=== PATIENT | female | born 1940 | race Caucasian/White ===

== ENCOUNTER → 2017-09-10 | Outpatient (CLI) | payer OTHER | LOC: BMCIMAGING 10:59 | PROVIDERS: ATTEND Internal Medicine | DX: M51.36 Other intervertebral disc degeneration, lumbar region (principal); M43.16 Spondylolisthesis, lumbar region; M25.552 Pain in left hip ==

== ENCOUNTER → 2017-09-27 | Outpatient (CLI) | payer OTHER | LOC: FIMAGING 13:36 | PROVIDERS: ATTEND Internal Medicine | DX: M43.16 Spondylolisthesis, lumbar region (principal); M48.061 Spinal stenosis, lumbar region without neurogenic claudication ==

== ENCOUNTER 2018-01-08 07:30 | Inpatient (IN) | payer OTHER ==
--- NOTE | 2018-01-08 06:29 | PDHPUP ---
History & Physical Update H&P update statement: This history and physical update is based on an assessment of the patient which was completed after admission or registration (within 24 hours), but prior to the surgery/procedure. H&P update: H&P reviewed & patient examined, no change in patient's condition since H&P completed
[2018-01-08] MEDS ORDERED: ceFAZolin 2 GM/SWFI 2 GM/20 ML SYR IVP ONE (08:52)
[2018-01-08] MEDS ORDERED: GABAPENTIN 300 MG CAP PO ONE (08:52)
[2018-01-08] MEDS ORDERED: ACETAMINOPHEN 500 MG TAB PO ONE (08:52)
[2018-01-08] MEDS ORDERED: THROMBIN (BOVINE) 5,000 UNIT VIAL TP ONE (09:13)
[2018-01-08] MEDS ORDERED: BACITRACIN 50,000 UNITS/10 ML SYR IRR ONE ×2 (09:13→12:11)
[2018-01-08] MEDS ORDERED: CHLORHEXIDINE GLUC HIBICLENS 118 ML BTL TP ONE (09:13)
[2018-01-08] MEDS ORDERED: BUPIVACAINE 0.25% 30 ML SDV ONE (09:13)
[2018-01-08] MEDS ORDERED: LIDOCAINE 1% 2 ML INJ ONE (09:18)
[2018-01-08] MEDS ORDERED: LIDOCAINE 1% 2 ML INJ ID PRN (09:47)
[2018-01-08] MEDS ORDERED: traMADol 50 MG TAB PO PRN (09:56)
--- NOTE | 2018-01-08 09:56 | PDANEPAE ---
ANE History of Present Illness lumbar stenosis ANE Past Medical History - Cardiovascular History Hx Hypertension: Yes Hx Arrhythmias: No Hx Chest Pain: No Hx Coronary Artery / Peripheral Vascular Disease: Yes Hx CHF / Valvular Disease: No Hx Palpitations: No Cardiovascular History Comment: hx of very high blood pressures requiring hospitalization. mi 1995 with stent placed. cad. pt is currently being worked up by [facility]. further tests being done 01/01/18 - Pulmonary History Hx COPD: No Hx Asthma/Reactive Airway Disease: No Hx Recent Upper Respiratory Infection: No Hx Oxygen in Use at Home: No Hx Sleep Apnea: No Sleep Apnea Screening Result - Last Documented: Negative - Neurologic History Hx Cerebrovascular Accident: Yes Hx Seizures: No Hx Dementia: No Neurologic History Comment: TIA 1992 after shoveling snow- no residual - Endocrine History Hx Diabetes: No Endocrine History Comment: hyperparathyroidism- sees unhairing inspector yearly for monitoring. hypercalcemia - Renal History Hx Renal Disorders: Yes Renal History Comment: renal insuff dt blood pressure medications - Liver History Hx Hepatic Disorders: No - Neurological & Psychiatric Hx Hx Neurological and Psychiatric Disorders: No - Cancer History Hx Cancer: No - Congenital Disorder History Hx Congenital Disorders: No - GI History Hx Gastrointestinal Disorders: Yes Gastrointestinal History Comment: hx of diverticulitis. recent constipation with medications- uses citracel at home - Other Health History Other Health History: wears glasses - Chronic Pain History Chronic Pain: Yes (lower back pain for over a year) - Surgical History Prior Surgeries: cataract 03/04/13 with Reece. cardiac stent 1995. multiple breast biopsies. at 22 yo exp lap for diverticulitis. at 40 yo partial hysterectomy and bladder lift. 1996 left broken ankle repair. 1997 hardware removed ANE Review of Systems Review of Systems: - Exercise capacity METS (RN): 4 METS ANE Patient History - Allergies Allergies/Adverse Reactions: Sftonjl-Pxv-Fau Reductase Inhibitor Allergy (Severe, Verified 12/25/17 10:27) Vomiting - Home Medications Home medications: home medication list seen and reviewed Home Medications: Allopurinol [Allopurinol 100 MG (*)] 100 mg PO DAILY 07/10/16 [Last Taken 07:00] Aspirin EC [Aspirin EC 81 mg (*)] 81 mg PO DAILY 07/10/16 [Last Taken 12/31/17] Colchicine [Colchicine (*)] 0.6 mg PO DAILY 07/10/16 [Last Taken 01/08/18 07:00] Gemfibrozil [Lopid 600 MG (*)] 600 mg PO BIDAC 07/11/16 [Last Taken 01/08/18 07: 00] Cholecalciferol Vit D3 [Vitamin D3 2000 units tab (OTC)] 2,000 units PO Q2D@09 12/18/17 [Last Taken 01/01/18] Latanoprost 0.005% [Xalatan 0.005% (*)] 1 drops EACHEYE HS 12/18/17 [Last Taken 01/07/18 21:00] Propranolol Sr [Inderal LA 60mg (*)] 180 mg PO DAILY 12/18/17 [Last Taken 07:00] traMADol [Ultram 50 mg (*)] 25 - 50 mg PO Q6 PRN 12/18/17 [Last Taken 01/08/18 08:00] - NPO status NPO Status: no food or drink >8 hours NPO Since - Liquids (Date): 01/07/18 NPO Since - Liquids (Time): 18:00 NPO Since - Solids (Date): 01/07/18 NPO Since - Solids (Time): 18:00 - Smoking Hx Smoking Status: Former smoker - Family Anes Hx Family Hx Anesthesia Complications: unknown pt is adopted ANE Labs/Vital Signs - Vital Signs Blood Pressure: 163/75 Heart Rate: 61 Respiratory Rate: 20 O2 Sat (%): 97 Height: 152.4 cm Weight: 45.359 kg ANE Physical Exam - Airway Neck exam: FROM Mouth exam: normal dental/mouth exam - Pulmonary Pulmonary: no respiratory distress - Cardiovascular Cardiovascular: regular rate and rhythym - ASA Status ASA Status: III
[2018-01-08] MEDS ORDERED: BISACODYL 10 MG SUPP PR PRN (09:58)
[2018-01-08] MEDS ORDERED: ONDANSETRON 4 MG/2 ML VIAL IVP PRN ×2 (09:58→13:44)
[2018-01-08] MEDS ORDERED: MAGNESIUM HYDROXIDE 30 ML UDCUP PO PRN (09:58)
[2018-01-08] MEDS ORDERED: oxyCODONE IR 5 MG TAB PO PRN (09:58)
[2018-01-08] MEDS ORDERED: morphINE PCA 30 MG/30 ML PCA IV PRN (09:58)
[2018-01-08] MEDS ORDERED: NALOXONE HCL 0.4 MG/ML INJ IVP PRN ×2 (09:58→13:44)
[2018-01-08] MEDS ORDERED: POLYETHYLENE GLYCOL 3350 17 GM PKT PO PRN (09:58)
[2018-01-08] MEDS ORDERED: LACTULOSE 20 GM/30 ML UDCUP PO PRN (09:58)
[2018-01-08] MEDS ORDERED: METHOCARBAMOL 750 MG TAB PO PRN (09:58)
[2018-01-08] MEDS ORDERED: ONDANSETRON DISINTEGRATING 4 MG TAB PO PRN (09:58)
[2018-01-08] MEDS ORDERED: HYDROmorphONE/DILAUDID 1 MG/ML INJ IVP PRN (09:58)
[2018-01-08] MEDS ORDERED: HYDROCODONE/APAP 5/325 TAB PO PRN (09:58)
[2018-01-08] MEDS ORDERED: diphenhydrAMINE 25 MG CAP PO PRN (09:58)
[2018-01-08] MEDS ORDERED: NS W/ 20 KCl/L 1,000 ML IV SCH (10:00)
[2018-01-08] MEDS ORDERED: fentaNYL 100 MCG/2 ML INJ ONE ×2 (10:06→14:38)
[2018-01-08] MEDS ORDERED: REMIFENTANIL HCL 1 MG VIAL ONE ×2 (10:06→13:19)
[2018-01-08] MEDS ORDERED: PROPOFOL/EMULSION 500 MG/50 ML BOTTLE IV ONE ×2 (10:06→12:54)
[2018-01-08] MEDS ORDERED: ROCURONIUM 50 MG/5 ML VIAL ONE (10:37)
[2018-01-08] MEDS ORDERED: LIDOCAINE 2% 5 ML SDV ONE (10:38)
[2018-01-08] MEDS ORDERED: ALBUMIN 5% 250 ML BOTTLE IV ONE (11:30)
[2018-01-08] MEDS ORDERED: hydrALAZINE 20 MG/ML VIAL ONE (11:59)
[2018-01-08] MEDS ORDERED: PROMETHAZINE HCL 25 MG/ML INJ IVP PRN (13:44)
[2018-01-08] MEDS ORDERED: LABETALOL HCL 5 MG/ML 20 ML MDV IVP PRN (13:44)
[2018-01-08] MEDS ORDERED: ceFAZolin 2 GM/DEXTROSE 100 ML IV SCH (14:00)
--- NOTE | 2018-01-08 14:27 | POSTANESTH ---
Post Anesthetic Evaluation Cardiovascular Status: Normal, Stable Respiratory Status: Normal, Stable Level of Consciousness/Mental Status: Can Participate in Eval Pain Control: Adequate, Prn Tx Ordered Nausea/Vomiting Control: Adequate, Prn Tx Ordered Complications Possibly Related to Anesthesia: None Noted
--- NOTE | 2018-01-08 14:40 | SOAPPROG ---
SOAP Progress Note Assessment/Plan: Post Op Visit: S: Awake and alert. NAD. Pt with expected lower back pain O: AFVSS/PERRLA/EOMI no droop CN 2-12 grossly intact +lt touch 5/5 BUE/BLE = CDI A/P: 77 yo female that is s/p TLIF L3/4 and L4/5 -orders in place -call with any questions or concerns -pt seen by Dr Hooker as well -take medications as directed 01/08/18 14:37 Objective: Vital Signs Temp Pulse Resp BP Pulse Ox 36.3 C 61 20 163/75 H 97 01/08/18 09:05 01/08/18 10:45 01/08/18 10:45 01/08/18 10:45 01/08/18 10:45 ICD10 Worksheet Patient Problems: Problems Problem Status Onset Arthrodesis status Acute Lumbar radicular pain Acute Lumbar stenosis Acute Bloody stool Acute GI hemorrhage Acute Near syncope Acute - ICD10 Problem Qualifiers (1) Lumbar stenosis (2) Lumbar radicular pain (3) Arthrodesis status
[2018-01-08] MEDS: fentaNYL 100 MCG/2 ML INJ IVP PRN ×2 (14:41→14:47)
[2018-01-08] MEDS: HYDROmorphONE/DILAUDID 1 MG/ML INJ IVP PRN ×3 (14:50→15:30)
[2018-01-08] MEDS ORDERED: HYDROmorphONE/DILAUDID 1 MG/ML INJ ONE (14:50)
--- NOTE | 2018-01-08 16:19 | GOP ---
[f rep st] OPERATIVE REPORT DATE OF OPERATION: 01/08/2018 SURGEON: Jena Hooker MD NEUROSURGEON: Jena Hooker MD. SUMMER ANALYST: Ralph Ramírez PA-C. PREOPERATIVE DIAGNOSIS: Lumbar spondylolisthesis L4-5, L3-4; severe spinal stenosis L4-5, moderate s david stenosis L3-4; lumbosacral radiculopathy. POSTOPERATIVE DIAGNOSIS: Lumbar spondylolisthesis L4-5, L3-4; severe spinal stenosis L4-5, moderate spinal stenosis L3-4; lumbosacral radiculopathy. PROCEDURE PERFORMED: Posterolateral intervertebral arthrodesis L3-4, L4-5 with bilateral decompressi ons L4-5 and left-sided decompression L3-4 (88721, [id number]); placement of biomechanical intervertebral device L3-4, L4-5; same incision bone graft harvest; spinal stereotactic; posterior segmental instrum entation at L3, L4, L5 ([id number]); microscope. FINDINGS: ESTIMATED BLOOD LOSS: 200 cc. INDICATIONS: Ms. Jaimes is a 77-year-old with terrible lumbosacral radiculopathy, left greater bishnu n right, who also had severe axial low back pain and spondylolisthesis, most prominent at the L4-5 le faiza and I suggested a 2 level lumbar fusion. She had failed conservative management. She was elderl y and I discussed with her family the serious nature of the surgery including the risk of adjacent se gment disease, screw and hardware malposition, malfunction, as well as the risk of pseudoarthrosis an d the need for revision surgery. She understood at her age, the risks of surgery were much greater than in a young person. These risk s include infection and pseudoarthrosis as well as the possibility that surgery will fail to improve her symptoms. They also knew there was a small chance of even catastrophic complications including t he patient's . They did want to proceed. DESCRIPTION OF PROCEDURE: The patient was taken to the operating room, placed in the supine position . General anesthesia was begun. She was flipped prone onto the Josué table. Care was taken to pa d all points of contact. Her back was sterilely prepped and draped in usual fashion. A localizing x -ray was taken. We made a 6-1/2 cm incision above the L3-4, L4-5 interspace. The subcutaneous tissu e was dissected using Bovie cautery down to the fascia and a subperiosteal dissection was made down t he inferior lamina of L2. The lamina of L3, 4, 5 was exposed. A self-retaining retractor was placed . A localizing x-ray was taken and we denuded the bilateral hypertrophic facets at L3-4, L4-5, and h er bone was exceptionally soft. We decorticated the transverse processes. We attached the Stealth r eference frame to L4, performed an O-arm spin and using frameless stealth stereotaxy placed pedicle s crews bilaterally at L3, 4, 5. We used 7.5 mm screws at L5 because her bone was so soft, I wanted to capture as much of the cortical wall of the pedicle as possible. We did get good capture. I even m nichole just the very tip of the screw capture the ventral surface of the vertebral body. We had a 3D im aging and there was no threat to the vasculature anteriorly. There was good purchase at L5 as well a s L3 and L4, where we used 6.5 mm screws. We took 55 mm rods, placed them down between these and we distracted only a couple mm each level. There was really no attempt to reduce the spondylolisthesis of L4. I did not think that the screw pullout strength was sufficient to warrant such a maneuver. W e locked the screws in place, decorticated all the bone, removed all the soft tissue of the bone L3, 4, 5. We harvested the L4 spinous process in its entirety. We took the very tip of the L5 spinous p rocess because it was really quite prominent and protruding out through the fascia. We preserved the supraspinous and interspinous ligament inferiorly between L5 and S1, despite removal of the rostral tip of L5. We then performed a bilateral laminectomy of L4 and a left hemilaminectomy of L3 and unde r the microscope decompressed bilateral L4-5 levels and a left hemilaminectomy at L3-4, removing liga mentum flavum. There was a lot of epidural bleeding, particularly on the left-hand side. We were go ing to perform our TLIF and removed the facet joints on the left at L3-4 and L4-5 to access the alessandro en. We swept the L5 nerve root medially, removed the L4-5 disk and its cartilaginous endplates. We roughened the subchondral bone to create arthrodesis and chose an 8 mm crescent peek device. We did not want to use elevate. We placed bone autograft into the disk space and BMP, and some BMP in the 8 mm device. It was inserted and it was an excellent fit. We then did likewise at L3-4 where from th e left-hand side we swept the nerve root medially, removed the L3-4 disk and its cartilaginous endpla landon. This disk space was a little more collapsed than L4-5 and we therefore chose a 7 mm device here . We did roughen the subchondral bone to create arthrodesis, packed bone autograft and the BMP in th e disk space and inserted a 7 mm crescent device. AP and lateral x-rays were taken. The devices wer e in excellent position. We then decorticated all remaining bone posterior laterally bilaterally, pl aced bone autograft and BMP posterolaterally bilaterally followed by a subfascial drain. We then sarah sed the incision in multiple layers using Vicryl sutures and a running Monocryl was placed in the ski n. Steri-Strips were applied. The patient was reversed from anesthesia, extubated, and transferred to recovery room in stable condition. There were no complications. COMPLICATIONS: None. INSTRUMENTATION USED: Daixe Solera 4.75 system with a 7 x 25 mm cage at L3-4 and an 8 x 25 mm cr escent cage at L4-5. /[id number]/MODL
[2018-01-08] MEDS: ACETAMINOPHEN 500 MG TAB PO SCH ×2 (17:51→20:50)
[2018-01-08] MEDS: ceFAZolin 2 GM/SWFI 2 GM/20 ML SYR IVP SCH (18:23)
[2018-01-08] MEDS: GEMFIBROZIL 600 MG TAB PO SCH (18:24)
[2018-01-08] MEDS: SENNOSIDES/DOCUSATE SODIUM TAB PO SCH (20:51)
[2018-01-08] MEDS: FAMOTIDINE 20 MG TAB PO SCH (20:51)
[2018-01-08] MEDS: LATANOPROST 0.005% 2.5 ML OPHT DROPS EACHEYE SCH (21:03)
[2018-01-09] MEDS: ceFAZolin 2 GM/SWFI 2 GM/20 ML SYR IVP SCH (01:59)
[2018-01-09] MEDS: ACETAMINOPHEN 500 MG TAB PO SCH ×3 (05:00→21:17)
[2018-01-09 05:32] LABS: PLATELET COUNT 109 10^3/uL (150-400)
--- NOTE | 2018-01-09 08:46 | NEUSURGPN ---
Date of Surgery: 01/08/18 Post Op Day: 1 Assessment/Plan: Assessment: 77 yo female that is s/p TLIF L3/4 and L4/5 POD #1 Plan: -s/p lumbar fusion: pt with expected lower back pain, legs feel better -PT/OT ordered -post op xrays pending -continue with pain control -call with any questions or concerns -orders in place -brace when out of bed -pt seen by Dr Hooker as well -take medications as directed -pt seen by Dr Hooker as well Subjective: Awake and alert. Pt with expected lower back pain. No tapia/neck/chest/abd or gu complaints Objective: AFVSS/PERRLA/EOMI no droop CN 2-12 grossly intact +lt touch 5/5 BUE/BLE = CDI Neuro Check Frequency: per routine Urinary Catheter in Place: No - Physician Discussed Patient with DrNeil: Morro Patient Seen by : [facility] Neuro[facility] Physical Exam - Vitals, I&O, Labs I and O 01/08/18 01/09/18 01/10/18 05:59 05:59 05:59 Intake Total 3700 237 Output Total 1550 Balance 2150 237 Weight 45.359 kg Intake: Oral (ml) 400 IV Intake (ml) 2540 237 IV Infused (ml) 760 NS W/ 20 KCl/L 1,000 ml @ 760 75 mls/hr IV CONT SOPHIE Rx #:[id number] Output: Urine (ml) 1550 Catheter 1550 Vital Signs Temp Pulse Resp BP Pulse Ox 36.9 C 60 16 115/62 96 01/09/18 05:45 01/09/18 05:45 01/09/18 00:08 01/09/18 05:45 01/09/18 05:45 Laboratory Results 01/09/18 04:52 01/09/18 04:52 ICD10 Worksheet Patient Problems: Problems Problem Status Onset Arthrodesis status Acute Lumbar radicular pain Acute Lumbar stenosis Acute Bloody stool Acute GI hemorrhage Acute Near syncope Acute - ICD10 Problem Qualifiers (1) Lumbar stenosis (2) Lumbar radicular pain (3) Arthrodesis status
[2018-01-09] MEDS: COLCHICINE 0.6 MG CAP/TAB PO SCH (09:15)
[2018-01-09] MEDS: SENNOSIDES/DOCUSATE SODIUM TAB PO SCH (09:15)
[2018-01-09] MEDS: ALLOPURINOL 100 MG TAB PO SCH (09:15)
[2018-01-09] MEDS: GEMFIBROZIL 600 MG TAB PO SCH ×2 (09:15→18:40)
[2018-01-09] MEDS: FAMOTIDINE 20 MG TAB PO SCH ×2 (09:16→21:17)
[2018-01-09] MEDS: PROPRANOLOL SR 60 MG CAP PO SCH (09:18)
--- NOTE | 2018-01-09 16:44 | ASMTCMCOM ---
CM Note CM Note Notes: Pt s/p lumbar fusion, has brace. Pt resides alone and may need HHC. OT rec home vs. HHC vs. SNF, PT rec HHC. CM to follow for d/c plan of care. Date Signed: 01/09/2018 04:44 PM Electronically Signed By:ANA ROSA Leyva
[2018-01-10] MEDS: SENNOSIDES/DOCUSATE SODIUM TAB PO SCH ×2 (00:24→10:16)
[2018-01-10] MEDS: LATANOPROST 0.005% 2.5 ML OPHT DROPS EACHEYE SCH (00:29)
[2018-01-10 04:34] VITALS: RESP 16
[2018-01-10] MEDS: ACETAMINOPHEN 500 MG TAB PO SCH ×2 (05:28→14:23)
[2018-01-10] MEDS ORDERED: CHOLECALCIFEROL VIT D3 2,000 UNITS TAB/CAP PO SCH (09:00)
--- NOTE | 2018-01-10 09:03 | NEUSURGPN ---
Date of Surgery: 01/08/18 Post Op Day: 2 Assessment/Plan: 77 yo female that is s/p TLIF L3/4 and L4/5 POD #2 Plan: -neuro stable -PT/OT -post op xrays: stable -wear brace when out of bed -pain controlled or orals -SCDs/TEDs/Lovenox -dispo: recommend rehab as patient lives alone, ok to discharge to rehab once bed arranged Discussed with Dr. Hooker Subjective: Having localized back pain. No LE pain, numbness, tingling. Objective: Awake. Alert. Muscle strength full at 5/5 Sensation intact - Physician Discussed Patient with : [facility] Physical Exam - Vitals, I&O, Labs I and O 01/09/18 01/10/18 01/11/18 05:59 05:59 05:59 Intake Total 3700 237 Output Total 1550 Balance 2150 237 Weight 45.359 kg Intake: Oral (ml) 400 IV Intake (ml) 2540 237 IV Infused (ml) 760 NS W/ 20 KCl/L 1,000 ml @ 760 75 mls/hr IV CONT SOPHIE Rx #:[id number] Output: Urine (ml) 1550 Catheter 1550 Other: Intake Quantity Yes Sufficient Number of Voids Toilet 2 Number of Stools Toilet 1 Vital Signs Temp Pulse Resp BP Pulse Ox 36.9 C 65 16 164/71 H 90 L 01/10/18 08:00 01/10/18 08:00 01/10/18 04:33 01/10/18 08:00 01/10/18 08:00 Laboratory Results 01/09/18 04:52 01/09/18 04:52 ICD10 Worksheet Patient Problems: Problems Problem Status Onset Arthrodesis status Acute Lumbar radicular pain Acute Lumbar stenosis Acute Bloody stool Acute GI hemorrhage Acute Near syncope Acute
[2018-01-10] MEDS: COLCHICINE 0.6 MG CAP/TAB PO SCH (10:15)
[2018-01-10] MEDS: FAMOTIDINE 20 MG TAB PO SCH (10:15)
[2018-01-10] MEDS: ALLOPURINOL 100 MG TAB PO SCH (10:15)
[2018-01-10] MEDS: PROPRANOLOL SR 60 MG CAP PO SCH (10:16)
[2018-01-10] MEDS: GEMFIBROZIL 600 MG TAB PO SCH ×2 (10:26→16:57)
[2018-01-10 13:35] VITALS: BP 142/62; PULSE 71; TEMP 97.9; O2SAT 98
--- NOTE | 2018-01-10 15:01 | PDIAF ---
- Diagnosis Diagnosis: Lumbar stenosis s/p lumbar fusion Code Status: Full Code - Medication Management Discharge Medications: Medications to Continue on Transfer Allopurinol [Allopurinol 100 MG (*)] 100 mg PO DAILY 07/10/16 [Last Taken 07:00] Colchicine [Colchicine (*)] 0.6 mg PO DAILY 07/10/16 [Last Taken 01/08/18 07:00] Gemfibrozil [Lopid 600 MG (*)] 600 mg PO BIDAC 07/11/16 [Last Taken 01/08/18 07: 00] Cholecalciferol Vit D3 [Vitamin D3 2000 units tab (OTC)] 2,000 units PO Q2D@09 12/18/17 [Last Taken 01/01/18] Latanoprost 0.005% [Xalatan 0.005% (*)] 1 drops EACHEYE HS 12/18/17 [Last Taken 01/07/18 21:00] Propranolol Sr [Inderal LA 60mg (*)] 180 mg PO DAILY 12/18/17 [Last Taken 07:00] Methocarbamol [Robaxin 750 mg (*)] 750 mg PO QID PRN #60 tab 01/10/18 [Last Taken Unknown] traMADol [Ultram 50 mg (*)] 25 - 50 mg PO Q6 PRN #60 tab 01/10/18 [Last Taken Unknown] Discharge Medications: Refer to the Discharge Home Medication list for PRN reason. - Orders Services needed: Physical Therapy, Occupational Therapy Diet Recommendation: no restrictions on diet Diet Texture: Regular Texture Diet Wound Care Instructions: OK to shower and get incision wet. Be gentle, no scrubbing. Activity/Weight Bearing Restrictions: No lifting more than 10 pounds or bending/ twisting. Wear brace when out of bed. - Follow Up Care Current Providers and Referrals: Joel Kay MD [Primary Care Provider] - Judie Hooker MD [Medical Doctor] - follow up in 2 weeks
--- NOTE | 2018-01-10 16:36 | ASMTCMCOM ---
CM Note CM Note Notes: Pt accepted at [facility], no insurance authorization required. Pt medically stable for d/c, [facility] van to pickup pt at 17:30. Orders sent in [employer]. Date Signed: 01/10/2018 04:36 PM Electronically Signed By:ANA ROSA Leyva
[2018-01-11] MEDS ORDERED: ENOXAPARIN 40 MG/0.4 ML SYR SC SCH (09:00)
== END 2018-01-10 17:15 | DRG 460 ==
LOC: F3N 08:33
PROVIDERS: ADMIT Neurological Surgery; ATTEND Neurological Surgery
DX: M43.16 Spondylolisthesis, lumbar region (principal); M54.16 Radiculopathy, lumbar region; M48.061 Spinal stenosis, lumbar region without neurogenic claudication; I25.10 Atherosclerotic heart disease of native coronary artery without angina pectoris; I25.2 Old myocardial infarction; Z87.891 Personal history of nicotine dependence
CPT/HCPCS: 97116-GP; 97161-GP; 97166-GO; 97535-GO; C1713; G8978-GP-CJ; G8979-GP-CI; G8987-GO-CJ; G8988-GO-CI; J0171; J0360; J0690; J1170; J2704; J3010; P9041

== ENCOUNTER → 2018-02-28 | Outpatient (CLI) | payer OTHER | LOC: FIMAGING 11:54 | PROVIDERS: ATTEND Physician Assistant | DX: Z09 Encounter for follow-up examination after completed treatment for conditions other than malignant neoplasm (principal); S33.130A Subluxation of L3/L4 lumbar vertebra, initial encounter; S33.140A Subluxation of L4/L5 lumbar vertebra, initial encounter; Z98.1 Arthrodesis status ==

== ENCOUNTER → 2018-03-21 | Outpatient (CLI) | payer OTHER | LOC: FIMAGING 14:34 | PROVIDERS: ATTEND Internal Medicine | DX: Z12.31 Encounter for screening mammogram for malignant neoplasm of breast (principal) ==

== ENCOUNTER → 2018-05-29 | Outpatient (CLI) | payer OTHER | LOC: FIMAGING 10:38 | PROVIDERS: ATTEND Nurse Practitioner | DX: Z09 Encounter for follow-up examination after completed treatment for conditions other than malignant neoplasm (principal); Z98.1 Arthrodesis status ==

== ENCOUNTER → 2018-09-05 | Outpatient (CLI) | payer OTHER | LOC: FLAB 10:52 | PROVIDERS: ATTEND Nurse Practitioner | DX: Z98.1 Arthrodesis status (principal) ==

== ENCOUNTER → 2018-10-03 | Outpatient (CLI) | payer OTHER | LOC: FIMAGING 10:08 | PROVIDERS: ATTEND Internal Medicine | DX: K76.89 Other specified diseases of liver (principal); K80.20 Calculus of gallbladder without cholecystitis without obstruction ==

== ENCOUNTER → 2019-01-30 | Outpatient (CLI) | payer OTHER | LOC: FIMAGING 11:19 | PROVIDERS: ATTEND Internal Medicine | DX: R10.84 Generalized abdominal pain (principal); K80.20 Calculus of gallbladder without cholecystitis without obstruction; M54.5 Low back pain ==

== ENCOUNTER → 2019-02-03 | Outpatient (CLI) | payer OTHER | LOC: FIMAGING 15:05 | PROVIDERS: ATTEND Internal Medicine | DX: K80.20 Calculus of gallbladder without cholecystitis without obstruction (principal); K57.30 Diverticulosis of large intestine without perforation or abscess without bleeding ==

== ENCOUNTER → 2019-02-19 | Outpatient (CLI) | payer OTHER | LOC: FIMAGING 08:18 | PROVIDERS: ATTEND Internal Medicine | DX: K80.20 Calculus of gallbladder without cholecystitis without obstruction (principal); R10.9 Unspecified abdominal pain | CPT/HCPCS: 78226; A9537 ==

== ENCOUNTER 2019-02-27 05:41 | Day surgery (SDC) | payer OTHER ==
[2019-02-27] MEDS ORDERED: LR 1,000 ML IV ONE (05:48)
[2019-02-27] MEDS ORDERED: NS 1,000 ML IV ONE (05:56)
[2019-02-27] MEDS ORDERED: cefOXitin SODIUM 2 GM in NS 100 ML IV ONE (06:00)
[2019-02-27] MEDS ORDERED: BUPIVACAINE 0.5% 30 ML SDV ONE (06:47)
[2019-02-27] MEDS ORDERED: HEPARIN 1000 UNIT/1 ML MDV ONE (06:47)
[2019-02-27] MEDS ORDERED: ceFAZolin 1 GM/5 ML SYR ONE (06:48)
--- NOTE | 2019-02-27 06:48 | PDANEPAE ---
ANE Past Medical History - Cardiovascular History Hx Hypertension: Yes Hx Arrhythmias: No Hx Chest Pain: No Hx Coronary Artery / Peripheral Vascular Disease: Yes Hx CHF / Valvular Disease: No Hx Palpitations: No Cardiovascular History Comment: mi 1995 with stent placed. cad. 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 - Renal History Hx Renal Disorders: Yes Renal History Comment: renal insuff due to medications sees nephrology dr roblero for yearly monitoring - Liver History Hx Hepatic Disorders: Yes Hepatic History Comment: gall stones - Neurological & Psychiatric Hx Hx Neurological and Psychiatric Disorders: No - Cancer History Hx Cancer: No Cancer History Comment: skin ca legs & face removed - Congenital Disorder History Hx Congenital Disorders: No - GI History Hx Gastrointestinal Disorders: Yes Gastrointestinal History Comment: hx of diverticulitis - Other Health History Other Health History: wears glasses. unk bumps at times - Chronic Pain History Chronic Pain: Yes (lower back pain for over a year) - Surgical History Prior Surgeries: 12/2017 FUSION L4,5,6. cataract 03/04/13 with Reece. [place] W/ cardiac stent 1995. multiple breast biopsies. at 22 yo exp lap for diverticulitis. at 40 yo partial hysterectomy and bladder lift. 1996 left broken ankle repair. 1997 hardware removed ANE Review of Systems Review of Systems: - Exercise capacity METS (RN): 4 METS ANE Patient History - Allergies Allergies/Adverse Reactions: Fsjzxzd-Hlo-Htn Reductase Inhibitor Allergy (Severe, Verified 12/25/17 10:27) Vomiting - Home Medications Home Medications: Allopurinol [Allopurinol 100 MG (*)] 100 mg PO DAILY 07/10/16 [Last Taken 04:30] Colchicine [Colchicine (*)] 0.6 mg PO DAILY 07/10/16 [Last Taken 02/27/19 04:30] Gemfibrozil [Lopid 600 MG (*)] 600 mg PO BIDAC 07/11/16 [Last Taken 02/27/19 04: 30] Cholecalciferol Vit D3 [Vitamin D3 2000 units tab (OTC)] 2,000 units PO Q2D@09 12/18/17 [Last Taken 02/26/19] Latanoprost 0.005% [Xalatan 0.005% (*)] 1 drops EACHEYE HS 12/18/17 [Last Taken 02/26/19] Propranolol Sr [Inderal LA 60mg (*)] 180 mg PO DAILY 12/18/17 [Last Taken 04:50] Aspirin 02/26/19 [Last Taken 02/26/19] Herbals/Supplements -Info Only 02/26/19 [Last Taken 02/26/19] - NPO status NPO Since - Liquids (Date): 02/26/19 NPO Since - Liquids (Time): 17:00 NPO Since - Solids (Date): 02/26/19 NPO Since - Solids (Time): 17:00 - Smoking Hx Smoking Status: Former smoker - Family Anes Hx Family Hx Anesthesia Complications: unknown pt is adopted ANE Labs/Vital Signs - Vital Signs Vital Signs: reviewed preoperatively; see RN documention for details Blood Pressure: 176/75 Heart Rate: 59 Respiratory Rate: 18 O2 Sat (%): 96 Height: 152.4 cm Weight: 45.359 kg ANE Physical Exam - Airway Neck exam: decreased ROM Mallampati Score: Class 1 Mouth exam: normal dental/mouth exam - Pulmonary Pulmonary: reduced air movement - ASA Status ASA Status: III ANE Anesthesia Plan Anesthesia Plan: general endotracheal anesthesia
[2019-02-27] MEDS ORDERED: fentaNYL 100 MCG/2 ML INJ ONE (07:07)
[2019-02-27] MEDS ORDERED: PROPOFOL 200 MG/20 ML VIAL ONE (07:07)
[2019-02-27] MEDS ORDERED: DEXAMETHASONE 4 MG/ML VIAL ONE (07:32)
[2019-02-27] MEDS ORDERED: ROCURONIUM 50 MG/5 ML VIAL ONE (07:32)
[2019-02-27] MEDS ORDERED: ONDANSETRON 4 MG/2 ML VIAL ONE (07:56)
[2019-02-27] MEDS ORDERED: KETOROLAC 30 MG/1 ML SDV ONE (07:56)
[2019-02-27] MEDS ORDERED: SUGAMMADEX SODIUM 200 MG/2 ML VIAL IVP ONE (08:00)
[2019-02-27] MEDS ORDERED: ONDANSETRON 4 MG/2 ML VIAL IVP PRN (08:02)
[2019-02-27] MEDS ORDERED: HYDROmorphONE/DILAUDID 1 MG/ML INJ IVP PRN (08:02)
[2019-02-27] MEDS ORDERED: METOCLOPRAMIDE 10 MG/2 ML VIAL IVP PRN (08:02)
[2019-02-27] MEDS ORDERED: PROMETHAZINE HCL 25 MG/ML INJ IVP PRN (08:02)
[2019-02-27] MEDS ORDERED: NALOXONE HCL 0.4 MG/ML INJ IVP PRN (08:02)
[2019-02-27] MEDS ORDERED: oxyCODONE IR 5 MG TAB PO PRN (08:02)
[2019-02-27] MEDS ORDERED: fentaNYL 100 MCG/2 ML INJ IVP PRN (08:02)
[2019-02-27] MEDS ORDERED: ALBUTEROL 3 ML DEYVIAL IH PRN (08:02)
[2019-02-27] MEDS ORDERED: ACETAMINOPHEN 500 MG TAB PO PRN (08:02)
[2019-02-27] MEDS ORDERED: MEPERIDINE 25 MG/0.5 ML AMP IVP PRN (08:02)
[2019-02-27] MEDS ORDERED: LR 500 ML IV PRN (08:02)
[2019-02-27] MEDS ORDERED: hydrALAZINE 20 MG/ML VIAL ONE (08:03)
--- NOTE | 2019-02-27 08:12 | POSTOPPROG ---
Post Op Note Date of Operation: 02/27/19 Surgeon: Mina Villalpando Adolescent Specialist: Chrissie Anesthesiologist: Sandy Anesthesia: GET(General Endotracheal) Pre-op Diagnosis: Cholelithiasis, RUQ pain Post-op Diagnosis: same Indication: same Procedure: lap awais with liver wedge bx Findings: Gallbladder with stones. Cirrhotic liver Inf/Abcess present in the surg proc area at time of surgery?: No Depth: Organ Space EBL: Minimal Bowel Protocol: N/A Clean Closure Performed: N/A Specimen(s): Gallbladder, liver wedge biopsy- permanent
[2019-02-27 09:16] VITALS: BP 98/49
--- NOTE | 2019-02-28 16:43 | GOP ---
[f rep st] OPERATIVE REPORT DATE OF OPERATION: 02/27/2019 SURGEON: Mina Villalpando MD ANESTHESIA: General endotracheal anesthesia. ANESTHESIOLOGIST: Dr. Delgado. PREOPERATIVE DIAGNOSIS: Cholelithiasis and cholecystitis. POSTOPERATIVE DIAGNOSIS: Cholelithiasis and cholecystitis plus possible cirrhosis. PROCEDURE PERFORMED: Laparoscopic cholecystectomy with liver wedge biopsy. FINDINGS: Patient was found to have subacutely inflamed gallbladder with multiple stones and small d ucts. She also had a mildly cirrhotic liver apparent. ESTIMATED BLOOD LOSS: Negligible. She was taken to recovery room in good condition. No complications. DESCRIPTION OF PROCEDURE: The patient was taken to the operating room where she received satisfactor y general endotracheal anesthesia by Dr. Delgado, placed in supine position, and prepped and draped in th e usual sterile fashion. A periumbilical incision was made. A Veress needle was inserted. Pneumope ritoneum was established. Trocar was introduced. Laparoscope introduced. Good visualization was ob tained. Three other trocars were placed in the upper abdomen under direct vision. The gallbladder w as elevated up. It was very thickened and full of stones and difficult to grasp. It was elevated up . Adhesions were taken down. The cystic triangle was carefully dissected free. The cystic duct was identified. It was dissected back toward the common bile duct with care to avoid injury to the comm on bile duct, which was clearly visualized. The cystic artery was also dissected free. Both structu res were hemoclipped and divided with care to avoid injury to the common bile duct. The peritoneum o homa the gallbladder was then incised. An excellent clear view had been obtained of peritoneum once t his was divided around the gallbladder, which was dissected free from the hepatic fossa and then extr acted through the upper midline port site. The wound was irrigated. Hemostasis was assured. A wedg e biopsy was taken from the edge of the right lobe of the liver using electrocautery for hemostasis. That was sent to pathology as well. The liver was relatively soft and pliable despite a cirrhotic f ibrotic pattern. Hemostasis was assured. The wound was irrigated. Trocars were removed under direc t vision. Trocar sites were closed with 0 Vicryl for the fascia, 4-0 Monocryl subcuticular stitch fo r the skin. All layers infiltrated with 0.5% Marcaine. /[id number]/MODL
== END 2019-02-27 09:57 | disposition home or self-care (01) ==
LOC: FSGY 05:41
PROVIDERS: ATTEND Surgery
PROC: 0FB04ZX Excision of Liver, Percutaneous Endoscopic Approach, Diagnostic (ICD-10-PCS; principal; 2019-02-27 07:15)
PROC: 0FT44ZZ Resection of Gallbladder, Percutaneous Endoscopic Approach (ICD-10-PCS; principal; 2019-02-27 07:15)
DX: K80.10 Calculus of gallbladder with chronic cholecystitis without obstruction (principal); K74.2 Hepatic fibrosis with hepatic sclerosis; I10 Essential (primary) hypertension; I25.10 Atherosclerotic heart disease of native coronary artery without angina pectoris; Z95.5 Presence of coronary angioplasty implant and graft; E21.3 Hyperparathyroidism, unspecified; N18.9 Chronic kidney disease, unspecified; K57.30 Diverticulosis of large intestine without perforation or abscess without bleeding; Z85.828 Personal history of other malignant neoplasm of skin
CPT/HCPCS: J0360; J0694; J1100; J1885; J2405; J2704; J3010

== ENCOUNTER → 2019-03-09 | Outpatient (CLI) | payer OTHER | LOC: FIMAGING 14:52 | PROVIDERS: ATTEND Neurological Surgery | DX: M43.16 Spondylolisthesis, lumbar region (principal); Z98.1 Arthrodesis status; R10.11 Right upper quadrant pain ==

== ENCOUNTER → 2019-04-08 | Outpatient (CLI) | payer OTHER | LOC: FIMAGING 09:51 | PROVIDERS: ATTEND Internal Medicine | DX: Z12.31 Encounter for screening mammogram for malignant neoplasm of breast (principal); R92.8 Other abnormal and inconclusive findings on diagnostic imaging of breast; Z98.890 Other specified postprocedural states ==

== ENCOUNTER → 2019-04-17 | Outpatient (CLI) | payer OTHER | LOC: FIMAGING 09:54 | PROVIDERS: ATTEND Internal Medicine | DX: R92.8 Other abnormal and inconclusive findings on diagnostic imaging of breast (principal) ==